=== PATIENT | female | born 1990 | race Two or more races ===

== ENCOUNTER 2016-08-09 16:11 | Emergency (ER) | payer MEDICAID ==
[~2016-08-09] VITALS: Ht 157.5 cm; Wt 97.7 kg
[2016-08-09 16:17] VITALS: BP 136/83
[2016-08-09] MEDS ORDERED: DIAZEPAM 5 MG TABLET PO ONE (17:00)
[2016-08-09] MEDS ORDERED: KETOROLAC 30 MG/1 ML IM ONE (17:00)
[2016-08-09] MEDS ORDERED: KETOROLAC 30 MG/1 ML ONE (17:23)
[2016-08-09] MEDS ORDERED: DIAZEPAM 5 MG TABLET ONE (17:23)
== END 2016-08-09 17:47 | disposition home or self-care (01) ==
LOC: ED 17:41
DX: S16.1XXA Strain of muscle, fascia and tendon at neck level, initial encounter (principal); Y93.89 Activity, other specified
CPT/HCPCS: 96372; 99283; J1885

== ENCOUNTER 2016-12-17 18:11 | Emergency (ER) | payer MEDICAID, OTHER ==
[~2016-12-17] VITALS: Ht 157.5 cm; Wt 97.0 kg
[2016-12-17 18:12] VITALS: BP 131/84
[2016-12-17] MEDS ORDERED: DEXAMETHASONE 4 MG/ML, 1ML PO ONE (18:30)
[2016-12-17] MEDS ORDERED: DEXAMETHASONE 4 MG TABLET ONE (18:53)
== END 2016-12-17 19:05 | disposition home or self-care (01) ==
LOC: ED 18:55
DX: J20.8 Acute bronchitis due to other specified organisms (principal); J02.0 Streptococcal pharyngitis
CPT/HCPCS: 71020; 99284; J1100

== ENCOUNTER 2017-04-12 03:19 | Emergency (ER) | payer OTHER ==
[~2017-04-12] VITALS: Ht 157.5 cm; Wt 93.5 kg
[2017-04-12 04:12] LABS: RAPID INFLUENZA A Negative (Negative); RAPID INFLUENZA B Negative (Negative)
[2017-04-12 05:01] VITALS: BP 115/67
== END 2017-04-12 05:04 | disposition home or self-care (01) ==
LOC: ED 05:00
DX: J00 Acute nasopharyngitis [common cold] (principal); R05 Cough; G43.909 Migraine, unspecified, not intractable, without status migrainosus
CPT/HCPCS: 71046; 87400; 99285

== ENCOUNTER 2017-09-03 22:49 | Emergency (ER) | payer SELFPAY ==
[~2017-09-03] VITALS: Ht 157.5 cm; Wt 87.0 kg
[2017-09-03] MEDS ORDERED: MAALOX/HYOSCYAMINE/LIDOCAINE 45 ML BTL PO ONE (23:30)
[2017-09-03 23:35] LABS: BASOPHILS # (AUTO) 0.04 x10^3/uL (0-0.1); BASOPHILS % (AUTO) 0 % (0-1); EOSINOPHILS # (AUTO) 0.29 x10^3/uL (0-0.4); EOSINOPHILS % (AUTO) 2 % (1-7); LYMPHOCYTES # (AUTO) 3.62 x10^3/uL (1-3.4); LYMPHOCYTES % (AUTO) 27 % (22-44); MD NO; MEAN CORPUSCULAR HEMOGLOBIN 26.3 pg (27.0-34.8); MEAN CORPUSCULAR HGB CONC 33.1 g/dL (32.4-35.8); MEAN CORPUSCULAR VOLUME 79.6 fL (80-100); MEAN PLATELET VOLUME 8.9 fL (7.4-10.4); MONOCYTES # (AUTO) 1.05 x10^3/uL (0.2-0.8); MONOCYTES % (AUTO) 8 % (2-9); NEUTROPHILS # (AUTO) 8.56 x10^3/uL (1.8-6.8); NEUTROPHILS % (AUTO) 63 % (42-75); PLATELET COUNT 343 x10^3/uL (130-400); RED BLOOD COUNT 5.31 x10^6/uL (3.82-5.3); RED CELL DISTRIBUTION WIDTH 14.8 % (9.6-15.2)
[2017-09-03] MEDS ORDERED: MAALOX/HYOSCYAMINE/LIDOCAINE 45 ML BTL ONE (23:35)
[2017-09-03 23:40] LABS: INTERNATIONAL NORMALIZED RATIO 0.99 (0.93-1.1); PROTHROMBIN TIME 10.3 Seconds (9.6-11.5)
[2017-09-03 23:45] LABS: ALANINE AMINOTRANSFERASE 21 U/L (12-78); ALBUMIN 3.6 g/dL (3.4-5.0); ANION GAP 7 mmol/L (5-15); CALCIUM 8.6 mg/dL (8.5-10.1); CHLORIDE 105 mmol/L (98-107)
[2017-09-03 23:50] LABS: ALKALINE PHOSPHATASE 128 U/L (45-117); BILIRUBIN,TOTAL 0.5 mg/dL (0.2-1.0); TOTAL PROTEIN 7.5 g/dL (6.4-8.2)
[2017-09-04 00:01] LABS: MICROSCOPIC INDICATED
[2017-09-04 00:08] LABS: CULTURE INDICATED? NO
[2017-09-04 00:39] VITALS: BP 98/53
== END 2017-09-04 01:25 | disposition home or self-care (01) ==
LOC: ED 23:34
DX: R10.11 Right upper quadrant pain (principal)
CPT/HCPCS: 36415; 74021; 76700; 80053; 81001; 83690; 84703; 85025; 85610; 99285